=== PATIENT | male | born 1945 | race Caucasian/White ===

== ENCOUNTER 2017-05-04 03:26 | Emergency (ER) | payer MEDICARE, BC ==
--- NOTE | 2017-05-04 04:11 | RADIOLOGY REPORT (SQ) ---
EXAM DESCRIPTION: RIBS RIGHT W/PA CHEST COMPLETED DATE/TIME: 05/04/2017 3:58 am REASON FOR STUDY: injury COMPARISON: None. TECHNIQUE: Frontal view of the chest and additional views of the right ribs acquired. NUMBER OF VIEWS: Four view. LIMITATIONS: None. FINDINGS: FRONTAL CXR: No pneumothorax. No pleural effusion. No atelectasis or infiltrates. Small calcified granuloma of the lower lungs measuring up to 0.4 cm on the left. RIBS: No displaced rib fractures. No lytic or blastic bony lesions. OTHER: Right upper abdominal clips. Moderate disc desiccation. IMPRESSION: NO PNEUMOTHORAX. NO DISPLACED RIB FRACTURES. COMMENT: SITE OF TRAUMA/COMPLAINT MARKED/STAMP COMPLETED: YES. TECHNICAL DOCUMENTATION: JOB ID: [id number] [employer]- All Rights Reserved
[2017-05-04] MEDS ORDERED: IBUPROFEN 800 MG TABLET PO ONE (04:54)
--- NOTE | 2017-05-04 04:57 | ER Document Report ---
HPI - HPI Pain Level: 1 Context: Patient is a severe amount presents emergency department complaining of right- sided rib pain. Patient states she had a fall on 1 week ago on April 27 when he tripped in his garage landing on a wheelbarrow on that side. Patient denies any pain with deep breath, pain with movement. Patient states that he only has pain with pressure laying on his side at night. Patient denies any fevers, chills, lethargy, weakness, cough, chest pain, nausea, vomiting. - DERM Skin Color: Normal Past Medical History - Social History Smoking Status: Never Smoker Family History: Reviewed & Not Pertinent Patient has suicidal ideation: No Patient has homicidal ideation: No Renal/ Medical History: Denies: Hx Peritoneal Dialysis Vertical Provider Document - CONSTITUTIONAL Agree With Documented VS: Yes - repeat BP at 169/96 Exam Limitations: No Limitations General Appearance: WD/WN, No Apparent Distress - INFECTION CONTROL TRAVEL OUTSIDE OF THE [place] IN LAST 30 DAYS: No - HEENT HEENT: Atraumatic, Normocephalic - NECK Neck: Normal Inspection, Other - Range of motion, no cervical spinous motion tenderness. No spinous process tenderness, deformity, step-offs, ecchymosis. - RESPIRATORY Respiratory: Breath Sounds Normal, No Respiratory Distress, Chest Non-Tender O2 Sat by Pulse Oximetry: 98 - Evidence of bruising over the right chest wall that is tender over ecchymosis but not tender to deep palpation of the ribs. - CARDIOVASCULAR Cardiovascular: Regular Rate, Regular Rhythm, No Murmur Pulses: Normal: Radial - MUSCULOSKELETAL/EXTREMETIES Musculoskeletal/Extremeties: MAEW, FROM, Non-Tender, No Edema - NEURO Level of Consciousness: Awake, Alert, Appropriate Motor/Sensory: No Motor Deficit, No Sensory Deficit - DERM Integumentary: Warm, Dry, No Rash Course - Re-evaluation Re-evalutation: 05/04/17 06:55 Is a 71-year-old male hemodynamic stable, no acute distress afebrile vital signs stable. Patient movement without any difficulty or pain. No evidence of fracture on chest x-ray. No clinical suspicion for any retroperitoneal hemorrhage, renal injury, abdominal wall hematoma. Stable for discharge home with instruction to follow-up with primary care. There is a noted lung nodule noted on x-ray. Discussion with patient he states that he has had this evaluated by CT scan and followed up with the cardiothoracic surgeon at home who stated that it is stable and to be observed. - Vital Signs Vital signs: Temp Pulse Resp BP Pulse Ox 97.5 F 55 L 18 212/78 H 98 05/04/17 03:35 05/04/17 03:35 05/04/17 03:35 05/04/17 03:35 05/04/17 03:35 - Diagnostic Test Radiology reviewed: Image reviewed, Reports reviewed Discharge - Discharge Clinical Impression: Back pain Condition: Good Disposition: HOME, SELF-CARE Instructions: Rib Contusion ([facility]), Use of [id number] Ibuprofen ([facility]), Ultram ([facility]) Prescriptions: Ibuprofen [Motrin 800 mg Tablet] 800 mg PO Q8H PRN #30 tab PRN Reason: Tramadol HCl [Ultram] 50 mg PO TID #10 tablet Forms: Elevated Blood Pressure
[2017-05-04 06:28] VITALS: BP 169/66
== END 2017-05-04 05:25 | disposition home or self-care (01) ==
LOC: ER 03:26
DX: M54.9 Dorsalgia, unspecified (principal); R07.81 Pleurodynia; W19.XXXA Unspecified fall, initial encounter
CPT/HCPCS: 99283; 71101; A9270